=== PATIENT | female | born 1975 | race Caucasian/White ===

== ENCOUNTER 2025-06-21 18:55 | Emergency (ER) | payer BC, SELFPAY ==
[2025-06-21 19:00] VITALS: BP 147/81; PULSE 85; RESP 18; TEMP 36.6; O2SAT 99; BMI 25.0
--- NOTE | 2025-06-21 19:09 | CRLHL7_ITS ---
For Patients: As a result of the Century Cures Act, medical imaging exams and procedure reports are released immediately into your electronic medical record. You may view this report before your referring provider. If you have questions, please contact your health care provider. Indication: Trauma. Technique: Three views of the left foot. Comparison: None. Findings/Impression: Minimally displaced fracture of the distal fibula. No additional fracture appreciated. Lisfranc alignment maintained. Visualized joint spaces grossly within normal limits. Plantar calcaneal spurring. Dictated by Stu Francis MD @ 06/21/2025 7:28:04 PM (Electronically Signed)
--- NOTE | 2025-06-21 19:09 | ED_ITS ---
HPI - General Adult General Chief complaint: Extremity Pain/Injury, Lower Stated complaint: L foot possibly broken, cant apply pressure Time Seen by Provider: 06/21/25 18:58 History of Present Illness HPI narrative: Patient is a 50-year-old woman who twisted her left foot ankle last night approximately 20 hours ago. She is unable to bear weight and has pain and swelling over the superior aspect of her left foot into her ankle. She has had no skin breakdown. She has been icing and taking Tylenol Motrin with no affect. Is otherwise uninjured. She did not hit her head. She takes minimal medications. No other complaints or concerns no knee pain or toe pain. Related Data Allergies Allergy/AdvReac Type Severity Reaction Status Date / Time azithromycin AdvReac Mild GI Upset Verified 06/21/25 19:04 Review of Systems Status of ROS: Reports: 10 or more systems reviewed and unremarkable except as noted in History and below [facility] Social History Smoking Status: Never smoker Second hand tobacco smoke exposure: No How often do you have a drink containing alcohol: never AUDIT-C Alcohol total score: 0 Non-prescribed substance use: denies use Exam Narrative: Exam Narrative: EXAM GENERAL: Patient appears comfortable and well. EYES: No scleral icterus. ENT: Tympanic membranes and oropharynx normal. THYROID: no thyroid nodules or thyromegaly. LYMPH: No supraclavicular or cervical lymphadenopathy. SKIN: Visible skin seen during exam normal or with benign process only. EXT: Examination of the left ankle shows swelling and bruising over the superior aspect of the left foot. Minimal ankle swelling as well. HEART: Regular rate and rhythm with no murmurs, rubs, or gallops. LUNGS: Clear to auscultation bilaterally with no crackles or wheezes. ABD: Soft, non tender, non distended. PSYCH: Good eye contact, speech is not pressured. Const: Vital Signs, click to edit/add: Vital Signs - 24 hr 06/21/25 19:00 Temperature 97.8 F Pulse Rate [Right Pulse Oximeter] 85 Respiratory Rate 18 Blood Pressure [Ri ght Upper Arm] 147/81 H Pulse Oximetry 99 Oxygen Delivery Me thod Room Air Course Course ED Course: X-ray series of the left foot and ankle are pending. Vital Signs Vital signs: Initial Vital Signs Temperature 97.8 F 06/21/25 19:00 Temperature Source Temporal Artery Scan 06/21/25 19:00 Pulse Rate 85 06/21/25 19:00 Respiratory Rate 18 06/21/25 19:00 Blood Pressure 147/81 H 06/21/25 19:00 Blood Pressure Mean 103 06/21/25 19:00 Blood Pressure Position Sitting 06/21/25 19:00 Pulse Oximetry 99 06/21/25 19:00 Oxygen Delivery Method Room Air 06/21/25 19:00 Vital Signs Temperature 97.8 F 06/21/25 19:00 Pulse Rate 85 06/21/25 19:00 Respiratory Rate 18 06/21/25 19:00 Blood Pressure 147/81 H 06/21/25 19:00 Pulse Oximetry 99 06/21/25 19:00 Oxygen Delivery Method Room Air 06/21/25 19:00 Temperature 97.8 F 06/21/25 19:00 Pulse Rate 85 06/21/25 19:00 Respiratory Rate 18 06/21/25 19:00 Blood Pressure 147/81 H 06/21/25 19:00 Pulse Oximetry 99 06/21/25 19:00 Oxygen Delivery Method Room Air 06/21/25 19:00 Medical Decision Making MDM Narrative Medical decision making narrative: Patient is a 50-year-old woman who comes in today after injuring her ankle left last night. She has pain over the lateral aspect of the ankle and has a confirmed distal fibular fracture on x-ray. The pain is moderate. We did place her in a cam walker. Weeks cues her from work recommended Tylenol Motrin ice and follow-up with [facility] this coming week. Discharge Plan Discharge Clinical Impression: Ankle fracture Patient Disposition: Home, Self-Care Condition: Stable Instructions: Ankle Fracture (ED) Additional Instructions: Cam walker as directed Ice Tylenol Motrin Rest Follow-up with Orthopedic fracture Clinic within the next week. Activity Level: Toe Touch Wt Bearing Discharge Diet: Regular Stand Alone Forms: MyHealth Info Instructions
--- NOTE | 2025-06-21 19:09 | CRLHL7_ITS ---
For Patients: As a result of the Century Cures Act, medical imaging exams and procedure reports are released immediately into your electronic medical record. You may view this report before your referring provider. If you have questions, please contact your health care provider. Indication: Trauma. Technique: Three views of the left ankle. Comparison: None. Findings/Impression: Minimally displaced fracture of the distal fibula with prominent surrounding soft tissue swelling. Ankle mortise appears maintained. No additional fracture appreciated. No dislocation. The talar dome maintains its normal contour without evidence of osteochondral injury. Plantar calcaneal spurring. Dictated by Stu Francis MD @ 06/21/2025 7:25:46 PM (Electronically Signed)
--- OUTSIDE RECORDS SUMMARY | 2025-06-21 19:48 | XMS_ITS | Clinical Summary ---
Author Organization [employer] [facility] Address [address] [place] [id number] Care Team Providers Care Prosthetist Name Role Phone Mary Berry DO Primary Care Provider [phone] Allergies Active AllergyReactionsCriticalityNoted DateCommentsErythromycinVomiting 10/17/2009 Can tolerate Zpak Medications MedicationSigDispense QuantityRefillsLast FilledStart DateEnd DateStatus multivitamin (MVI) tablet Take 1 tablet by mouth once daily.ctive cetirizine (ZYRTEC) 10 mg tablet Take 1 tablet by mouth once daily.ctive Graduated Compression Stockings Indications:Varicose veins of bilateral lower extremities with other complicationsFor personal use. Length: thigh Strength: 20-30 mmHg Circumference in cm: For thigh: Ankle 20cm, Calf 37.5cm, Thigh 49.5, Thigh to Ankle length 50cm. 1 Packet 05/15/2021ctive medication order composer Active Graduated Compression Stockings Indications:Varicose veins of leg with pain, -10 mmHg thigh high compression stockings. Wear as directed. 3 Packet ctive Additional Information Patient not taking.Reason: duplicate, Reported on 05/25/2025 acyclovir (ZOVIRAX) 400 mg tablet Indications:Herpes simplexTake 1 Tablet (400 mg) by mouth three times daily. 15 Tablet 605Active amoxicillin-clavulanate (AUGMENTIN) 875-125 mg tablet Indications:Acute non-recurrent maxillary sinusitisTake 1 Tablet by mouth two times daily with meals for 5 days. 10 Tablet 11/28/458390/08/2024Expired Active Problems ProblemNoted DateDiagnosed DateFormer oiwigd3812/26/20214967Pfmutoqmieth95/01/2022 Female pattern hair loss02/15/2019Dysfunctional uterine lxripwmd32/18/2017 Overview (02/15/2019): Ultrasound with small fibroid. 05/2016. Periods have been light and irregular Lichen sclerosus of female vhlobsowp03/18/2017Overweight (BMI 25.0-29.9) 08/27/2015Herpes hvliudm4808/21/2010 Overview (02/15/2019): Chin. Last outbreak > 5 years ago. Uses acyclovir. 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 Cough (Patient has been coughing, ear and neck pain, ongoing for over a week) 05/25/2025Travelfrom Last 3 Months Immunizations ImmunizationAdministration DatesNext DueHepA-HepB (Twinrix)11/09/2014,06/11/2014 ,05/10/2014Td (Age >=7 Years)05/15/2021,08/25/2004Tdap08/21/2010 Family History Medical HistoryRelationNameCommentsColon polypsFatherDiabetesFather HyperlipidemiaFatherCancer-ovarianMaternal Aunt 1Psychiatric illnessMaternal Aunt 1DepressionPsychiatric illnessMaternal Aunt 2DepressionDiabetesMother HyperlipidemiaMotherHypertensionMotherPsychiatric illnessMotherSADCancer-colon Paternal GrandfatherCancer-breastNo Family HistoryRelationNameStatusComments FatherAliveMaternal Aunt 1Maternal Aunt 2MotherAlivePaternal Grandfather Social History Tobacco UseTypesPacks/DayYears UsedDateSmoking Tobacco: FormerCigarettes0.521 07/04/2000 - 07/04/2021assive Smoke Exposure: NeverSmokeless Tobacco: Never Tobacco Cessation:Counseling Given: No Comments:has not smoked in 2 weeks, using a gum Alcohol UseStandard Drinks/WeekCommentsYes0 (1 standard drink = 0.6 oz pure alcohol)occasionalPHQ-2AnswerDate RecordedPHQ-2 TOTAL HCKCH674Social ConnectionsAnswerDate RecordedDo you often feel lonely or isolated from those around you?lcohol UseAnswerDate RecordedHow often do you have a drink containing alcohol?How many drinks containing alcohol do you have on a typical day when you are drinking?How often do you have five or more drinks on one occasion?Financial Resource StrainAnswer Date RecordedDifficulty of Paying Living Upxfaigy461/28/2025Difficulty of Paying Living ExpensesNot on file05/25/2025Food InsecurityAnswerDate RecordedDo you worry your food will run out before you are able to buy more? Transportation NeedsAnswerDate RecordedDoes lack of transportation keep you from medical appointments?Does lack of transportation keep you from work, meetings or getting things that you need?Housing StabilityAnswerDate RecordedWhat is your housing situation today?UtilitiesAnswerDate RecordedDo you have trouble paying for utilities (for example, heat, electricity, water, phone)?CommentsNoSex and Gender InformationValueDate RecordedSex Assigned at BirthNot on fileLegal SexFemale 07/11/2012 7:52 AM CSTGender IdentityNot on fileSexual OrientationNot on file Obstetrics History GravidaParaTermPretermABIABSABEctopicMultipleLivingLive Rmqppu9125IyklUoackjmYY Total LaborLabor/2nd/2vdSdestcTspXdaqGlirUEAQkhV7M7JalyAilxNDS Last Filed Vital Signs Vital SignReadingTime TakenCommentsBlood Utdwgvhw682/8611 8:55 AM CURRENCY COUNTER Akzyu590905/25/2025 8:55 AM VKPVhyfdlrxzdd45.6 ??C (97.9 ??F)05/25/2025 8:55 AM CSTRespiratory Jtjn1614 9:02 AM CDTOxygen Aduasesebo38%05/25/2025 8:55 AM CSTInhaled Oxygen Concentration--Dnzsyb43.7 kg (153 lb 11.2 oz)05/25/2025 8:55 AM CSTwith ddedlWlqqon697.6 cm (5' 4)07/07/2024 2:53 PM CSTBody Mass Index 26.38007/07/2024 2:53 PM CURRENCY COUNTER Plan of Treatment Health MaintenanceDue DateLast DoneCommentsPneumococcal series for age 50+ (1 of 1 - PCV)2023Zoster (shingles) series for age 50+ (1 of 2)2023Fecal testing sDNA-FIT (Cologuard) for age 45-7504/504/OVID-19 vaccine series ( - 2024- season)2025Influenza Vaccine (#1)2025Mammogram for age 40-7512/512/08/2023, 05/28/2023, 05/20/2022, Additional history existsBMI (ht and wt on same day) for age 18+, 10/01/2023, 06/11/2023, Additional history existsDepression screening for age 12+07/07/2025 07/07/2024, 06/11/2023, 05/20/2022, Additional history existsPap test for age 21-6511/6107/15/2020, 05/15/2021, 12/11/2016, Additional history exists Lipids for age 45-7501/, 06/11/2023, 05/20/2022, Additional history existsTetanus mhuginn74/18/271499/, 08/21/2010, 08/25/2004, Additional history existsRSV vaccine for adults or (1 - 1-dose 75+ series)2048Hepatitis B series for 19+Bevescjnw82/15/2015, 06/11/2014, 05/10/2014HIV for age 15-17Lrtuadyzt23/23/2022Hepatitis C screening for age 18-10Ystpiqkve70/23/2022 Procedures Procedure NamePriorityDate/TimeAssociated DiagnosisCommentsLIPID PANEL W REFLEX MEASURED QHVVmupmlq98/10/2025 3:38 PM CURRENCY COUNTER Screening cholesterol level XR MAMMO CHIQUITA BILAT SPDFLBUepxcaa91/03/2024 7:11 AM CURRENCY COUNTER Visit for screening mammogram ANTI HIV 1/9Hbsavfk23/23/2022 2:54 PM CURRENCY COUNTER Screening for HIV (human immunodeficiency virus) ANTI JCFVpkbjqc44/23/2022 2:54 PM CURRENCY COUNTER Need for hepatitis C screening test SCAN-FECAL TEST DNA (COLOGUARD)10/17/2021 7:00 AM CDTHPV HIGH RISKRoutine 05/15/2021 11:46 AM CURRENCY COUNTER Cervical cancer screening from Last 3 Months or Most Recently Relevant to Health Maintenance Results * (ABNORMAL) LIPID PANEL W REFLEX MEASURED LDL (07/07/2024 3:38 PM CURRENCY COUNTER)Component ValueRef RangeTest MethodAnalysis TimePerformed AtPathologist Signature CHOLESTEROL, IOBUE908(H)<200 mg/dLQuest [facility]-Play[facility]afe DaleHDL CHOLESTEROL 117> OR = 50 mg/dLQuest [facility] ZskuYDZKEAFHFBOXH02<150 mg/dLQuest [facility] DaleLDL-IVLWQCEFDOW40ef/dL (calc)[facility] Comment: Reference range: <100 Desirable range <100 mg/dL for primary prevention; <70 mg/dL for patients with CHD or diabetic patients with > or = 2 CHD risk factors. LDL-C is now calculated using the Philippe-Preston calculation, which is a validated novel method providing better accuracy than the Friedewald equation in the estimation of LDL-C. Philippe SS et al. BRENT. 2013;310(19): 5429-8108 (http://education.[employer]/faq/EPD527) CHOL/HDLC RATIO2.0<5.0 (calc)[facility] FarhadeNON HDL LZFWVKBOTKE008 <130 mg/dL (calc)[facility] FarhadeComment: For patients with diabetes plus 1 major ASCVD risk factor, treating to a non-HDL-C goal of <100 mg/dL (LDL-C of <70 mg/dL) is considered a therapeutic option. Specimen (Source)Anatomical Location / LateralityCollection Method / Volume Collection TimeReceived TimeBloodBLOOD SPECIMEN / Fectjpk0907/07/2024 3:38 PM CURRENCY COUNTER 07/07/2024 3:38 PM CURRENCY COUNTER Narrative Authorizing ProviderResult TypeResult StatusSherri Aleja Oliverusc [facility] DOCHEMISTRYFinal ResultPerforming OrganizationAddressCity/State/ZIP CodePhone Number [employer]Water [facility] [address] [place] [address], [facility] [address] [place] [address] * XR MAMMO CHIQUITA BILAT SCREEN (05/30/2024 7:11 AM CURRENCY COUNTER)Anatomical RegionLaterality ModalityBREASTS, Breast Left, Breast RightBilateralMammographySpecimen (Source)Anatomical Location / LateralityCollection Method / VolumeCollection TimeReceived Time Impressions 05/31/2024 3:40 PM CURRENCY COUNTER There is no radiographic evidence for malignancy. Recommend annual mammograms. MAMMOGRAM ASSESSMENT: ??ACR 1 Negative PATIENTS: You will also receive a letter with your examination results in an easy to read format. ??If you have questions about your results, please contact your referring provider. Narrative 05/31/2024 3:40 PM CURRENCY COUNTER For Patients: As a result of the Century Cures Act, medical imaging exams and procedure reports are released immediately into your electronic medical record. You may view this report before your referring provider. If you have questions, please contact your health care provider. XR MAMMO CHIQUITA BILAT SCREEN [[id number]] CLINICAL HISTORY: ??This is an asymptomatic 49 y.o. patient. INDICATION FOR EXAM: Mammogram Screening. TECHNIQUE: CC & MLO views were obtained. This study was evaluated with the assistance of Computer-Aided Detection. Breast Tomosynthesis was used in interpretation. COMPARISON FILM: Yes 05/28/23 [facility] 05/20/22 [facility] FINDINGS: ??There are scattered areas of fibroglandular density. There are no dominant masses, suspicious micro calcifications or areas of architectural distortion. Authorizing ProviderResult TypeResult StatusMary Berry DOMAMMOFinal Result * ANTI HCV (05/20/2022 2:54 PM CURRENCY COUNTER)ComponentValueRef RangeTest MethodAnalysis TimePerformed AtPathologist SignatureHEPATITIS C ANTIBODYNon-Reactive Non-Lflbnnes58/26/2022 12:26 AM [facility] Comment:Antibodies to HCV not detected; does not exclude the possibility of exposure to HCV.Specimen (Source)Anatomical Location / LateralityCollection Method / VolumeCollection TimeReceived TimeBloodBLOOD SPECIMEN / Unknown Butterfly / Ijavcxn7205/20/2022 2:54 PM CST05/20/2022 2:55 PM CURRENCY COUNTER Narrative Authorizing ProviderResult TypeResult Aline Berry DOSEND OUTSFinal ResultPerforming OrganizationAddressCity/State/ZIP CodePhone Number [facility] [address] [place] [address], [place] * ANTI HIV 1/2 [78443.0] (05/20/2022 2:54 PM CURRENCY COUNTER)ComponentValueRef RangeTest MethodAnalysis TimePerformed AtPathologist SignatureHIV-1/HIV-2 ANTIBODY Ios-JfytuwfoOwn-Dydbdikl15/26/2022 12:13 AM CSTINOVA [facility] CENTRAL LABORATORYComment:HIV-1 p24 and HIV-1/HIV-2 Ab not detected.Specimen (Source)Anatomical Location / LateralityCollection Method / VolumeCollection TimeReceived TimeBloodBLOOD SPECIMEN / UnknownButterfly / Ojfmoam3305/20/2022 2:54 PM CST05/20/2022 2:55 PM CURRENCY COUNTER Narrative Authorizing ProviderResult TypeResult StatusMary Berry DOSEND OUTSFinal ResultPerforming OrganizationAddressCity/State/ZIP CodePhone Number [facility] [address] [place] [address], * SCAN-FECAL TEST DNA (COLOGUARD) (10/17/2021 7:00 AM CDT) Narrative Authorizing ProviderResult TypeResult StatusScannerOTHERFinal Result * HPV HIGH RISK (05/15/2021 11:46 AM CURRENCY COUNTER)ComponentValueRef RangeTest Method Analysis TimePerformed AtPathologist SignatureTYPE 16NegativeNegative 05/19/2021 5:15 PM [facility]STIN[facility]-CENTRAL LABORATORYTYPE 18 RnjrpcapVwucwmsu11/22/2021 5:15 PM CSTBAT[facility]AL LABORATORYOTHER HIGH RISK BFSGBZyqgsbvyQewqpmph39/22/2021 5:15 PM CSTEN[facility] LABORATORYSpecimen (Source)Anatomical Location / LateralityCollection Method / VolumeCollection TimeReceived TimeOther (Cervical)Non-Blood / Gkfxlhq2005/15/2021 11:46 AM CST05/16/2021 9:17 AM CURRENCY COUNTER Narrative [facility] - 05/19/2021 5:15 PM CURRENCY COUNTER HPV types 16, 18, 31, 33, 35, 39, 45, 51, 52, 56, 58, 59, 66 and 68 DNA were undetectable or below the pre-set threshold. Methodology: Olegario Sage 4800 HPV Test Authorizing ProviderResult TypeResult StatusSherri Aleja Berry DOMICROBIOLOGY Final ResultPerforming OrganizationAddressCity/State/ZIP CodePhone Number [facility] [address] [place] [address], from Last 3 Months or Most Recently Relevant to Health Maintenance Insurance * Guarantor: Sue Villeda AAccount TypeRelation to PatientDate of PhoneBilling AddressPersonal/BgojaaWymc1975 [address] [place] [address] Advance Directives * Full Code (Latest Code Status on File) Date ActivatedDate InactivatedComments10/29/2022 5:49 AM10/29/2022 2:01 PMQuestion AnswerCommentsCode Status Discussion:* Reviewed Preferences Care Teams Team MemberRelationshipSpecialtyStart [place] [address] [place] [address] PCP - GeneralFamily Bshrskil86/28/25
[2025-06-21 19:50] VITALS: BP 138/71; PULSE 80; RESP 18; TEMP 36.6; O2SAT 99
== END 2025-06-21 20:05 | disposition home or self-care (01) ==
LOC: ED 19:46
PROVIDERS: Emergency Provider Internal Medicine
DX: S82.832A Other fracture of upper and lower end of left fibula, initial encounter for closed fracture (principal); X58.XXXA Exposure to other specified factors, initial encounter
CPT/HCPCS: 29505; 73610; 73630; 99283; 99284